=== PATIENT | female | born 1990 | race Caucasian/White ===

== ENCOUNTER 2018-05-05 12:42 | Emergency (ER) | payer MEDICAID ==
[~2018-05-05] VITALS: Wt 66.5 kg
[2018-05-05 12:47] VITALS: BP 131/68; PULSE 100; RESP 17
--- NOTE | 2018-05-06 22:23 | ERD ---
ER Documentation Chief Complaint Chief Complaint RIGHT ARM PAIN, HEADACHE, ONSET SEVERAL DAYS HPI 28 yo Uz[place] speaking F presents to the ED with complaints of sudden onset right arm swelling and redness since yesterday. Pt states swelling first started on her left knee, which has since improved, migrated to her left arm, got better and has since migrated to her right arm. She reports a pressure like sensation but denies any real pain. Redness an swelling have been waxing and waning since onset. She denies any trauma, recent illness, fevers or chills. She denies any history of similar symptoms. No chest pain, shortness of breath, difficulty breathing, numbness, tingling or focal weakness. No associated neck or back pain. No other complaints. ROS All systems reviewed and are negative except as per history of present illness. PMhx/Soc History of Surgery: Yes Anesthesia Reaction: No Hx Neurological Disorder: No Hx Respiratory Disorders: No Hx Cardiac Disorders: No Hx Psychiatric Problems: No Hx Miscellaneous Medical Probl: No Hx Alcohol Use: No Hx Substance Use: No Hx Tobacco Use: No Smoking Status: Never smoker Physical Exam Vitals Vital Signs Date Temp Pulse Resp B/P (MAP) Pulse Ox O2 O2 Flow FiO2 Time Delivery Rate 05/05/18 98.6 100 17 131/68 99 12:47 (89) Physical Exam Const: No acute distress Head: Atraumatic Eyes: Normal Conjunctiva ENT: Normal External Ears, Nose and Mouth. Neck: Full range of motion. No meningismus. Resp: Clear to auscultation bilaterally Cardio: Regular rate and rhythm, no murmurs Abd: Soft, non tender, non distended. Normal bowel sounds Skin: No petechiae or rashes Back: No midline or flank tenderness Ext: + Right hand with mild swelling and blanching erythema extending towards mid forearm. No warmth. No tenderness. No lesions. No cyanosis. Full ROM of right elbow, wrist and fingers. Radial, ulnar and median nerves intact. Mark Test negative. Sensation and motor grossly intact. LUE normal. Neur: Awake and alert Psych: Normal Mood and Affect Result Diagram: 05/05/18 1449 05/05/18 1449 Results 24 hrs Laboratory Tests Test 05/05/18 14:49 White Blood Count 7.8 10^3/ul Red Blood Count 4.93 10^6/ul Hemoglobin 14.2 g/dl Hematocrit 41.9 % Mean Corpuscular Volume 85.0 fl Mean Corpuscular Hemoglobin 28.8 pg Mean Corpuscular Hemoglobin Concent 33.9 g/dl Red Cell Distribution Width 13.6 % Platelet Count 270 10^3/UL Mean Platelet Volume 10.3 fl Immature Granulocytes % 0.600 % Neutrophils % 52.5 % Lymphocytes % 34.7 % Monocytes % 9.5 % Eosinophils % 2.3 % Basophils % 0.4 % Nucleated Red Blood Cells % 0.0 /100WBC Immature Granulocytes # 0.050 10^3/ul Neutrophils # 4.1 10^3/ul Lymphocytes # 2.7 10^3/ul Monocytes # 0.7 10^3/ul Eosinophils # 0.2 10^3/ul Basophils # 0.0 10^3/ul Nucleated Red Blood Cells # 0.0 10^3/ul Erythrocyte Sedimentation Rate 1 mm/Hr Urine Color YELLOW Urine Clarity SLIGHTLY CLOUDY Urine pH 7.0 Urine Specific [place] 1.026 Urine Ketones NEGATIVE mg/dL Urine Nitrite NEGATIVE mg/dL Urine Bilirubin NEGATIVE mg/dL Urine Urobilinogen NEGATIVE mg/dL Urine Leukocyte Esterase TRACE Jeff/ul Urine Microscopic RBC 2 /HPF Urine Microscopic WBC 1 /HPF Urine Squamous Epithelial Cells FEW /HPF Urine Hemoglobin NEGATIVE mg/dL Urine Glucose NEGATIVE mg/dL Urine Total Protein NEGATIVE mg/dl Sodium Level 143 mmol/L Potassium Level 3.8 mmol/L Chloride Level 107 mmol/L Carbon Dioxide Level 24 mmol/L Anion Gap 12 Blood Urea Nitrogen 15 mg/dl Creatinine 0.69 mg/dl Est Glomerular Filtrat Rate mL/min > 60 mL/min Glucose Level 107 mg/dl Calcium Level 9.5 mg/dl Total Bilirubin 0.3 mg/dl Direct Bilirubin 0.00 mg/dl Indirect Bilirubin 0.3 mg/dl Aspartate Amino Transf (AST/SGOT) 77 IU/L Alanine Aminotransferase (ALT/SGPT) 116 IU/L Alkaline Phosphatase 73 IU/L C-Reactive Protein 0.8 mg/dl Total Protein 8.3 g/dl Albumin 4.5 g/dl Globulin 3.80 g/dl Albumin/Globulin Ratio 1.18 Procedures/MDM EMERGENT LABS AND DIAGNOSTIC STUDIES: Lab Results above were reviewed and interpreted by me as below. CBC: no e/o of systemic infection or severe anemia CMP: no e/o severe acidosis, alkalosis, renal failure, diabetic ketoacidosis. + Mild transaminitis ESR/CRP normal Urine: + trace leuks. No hematuria or pyuria EMERGENCY DEPARTMENT COURSE / MEDICAL DECISION MAKIN yo F presents with atraumatic extremity swelling and pain. She is afebrile here and vital signs are stable. Sx improved during her course of stay here spontaneously without any treatment. CBC negative for any infection. Inflammatory markers ESR/CRP negative. CMP with mild transamintitis but unlikely the cause of pt's symptoms. UA has trace lueks but pt has not been having any UTI type symptoms so no need to treat at this time. No need for imaging as there was no trauma. Discussed these results with pt at bedside. Source of pt's symptoms are unclear however pt has no emergent findings on workup or exam and can be managed as outpatient. No evidence of compartment syndrome, neurologic injury, vascular injury, open joint, open fracture, tendon laceration, or foreign body. She was given a list of clinics to follow up with this week. Strict return precautions given. Prior to discharge, patients vital signs have been reviewed SPECIALIST FOLLOW UP RECOMMENDED: None Patient has been advised to follow up with primary care in 1-2 days. Departure Diagnosis: Primary Impression: Arm swelling Condition: Stable Patient Instructions: Peripheral Edema, Unilateral Referrals[facility] Usted se egan hecho un examen mdico de control que le indica que no est en alanis condicin que requiera tratamiento urgente en el Departamento de Emergencia. Un estudio ms profundo y el tratamiento de durham condicin pueden esperar sin ningn riesgo hasta que usted sea atendida/o en el consultorio de durham mdico o alanis clnica. Es responsabilidad suya arreglar alanis shandra para el seguimiento del felisha. MANEJO DE CONDICIONES NO URGENTES EN EL FUTURO 1) Si usted tiene un mdico de atencin primaria: Usted debera llamar a durham mdico de atencin primaria antes de venir al departamento de emergencia. Despus de las horas de consultorio, durham doctor o durham asociado/a est disponible por telfono. El mdico o enfermero de chaim en el servicio telefnico puede asesorarle por isabel medio para atender el problema, o felisha contrario se puede programar alanis shandra. 2) Si usted no tiene un mdico de atencin primaria: Llame al mdico o clnica de referencia que aparece abajo shayan las horas de consultorio para hacer alanis shandra para que le vean. CLINICAS: [facility] [phone] [facility] [phone] [facility] [phone] [place] [phone] [place] [phone] [facility] [phone] Additional Instructions: Please follow-up with the clinics for referral to a rheumatological doctor. I do not find any specific cause of your symptoms here in the ED. Your lab work is normal. Follow-up with 1 of the clinics provided to you, otherwise return to the ED for any worsening pain, fevers, chills, numbness, tingling or any other symptoms. MARIA A RITTER PA-C May 06, 2018 21:50
== END 2018-05-05 16:19 | disposition home or self-care (01) ==
LOC: FTE 12:42
DX: M79.89 Other specified soft tissue disorders (principal)
CPT/HCPCS: 36415; 80053; 81001; 85025; 85651; 86140; 99283

== ENCOUNTER 2018-12-24 18:45 | Emergency (ER) | payer MEDICAID ==
[~2018-12-24] VITALS: Ht 162.6 cm; Wt 64.7 kg
[~2018-12-24 18:45] MED LIST: ACET500C5 PO; CEPH-443 PO; NAPR-985 PO
[2018-12-24 19:15] VITALS: BP 111/57; PULSE 67; RESP 16; Ht 162.6 cm; Wt 64.7 kg
[2018-12-24] MEDS ORDERED: ACETAMINOPHEN 500 MG TAB PO STA (20:24)
== END 2018-12-24 22:39 | disposition home or self-care (01) ==
LOC: FTE 18:45
DX: O23.42 Unspecified infection of urinary tract in pregnancy, second trimester (principal); R10.2 Pelvic and perineal pain; Z3A.17 17 weeks gestation of pregnancy
CPT/HCPCS: 36415; 76775; 76805; 80053; 81001; 84702; 85025; 87086; Z7502; Z7610